=== PATIENT | female | born 1955 | race African-American/Black ===

== ENCOUNTER 2016-10-10 06:33 | Day surgery (SDC) | payer SELFPAY ==
[2016-10-08 13:34] VITALS: BMI 20.6
[2016-10-10] MEDS ORDERED: PROPOFOL 20 ML ONE ×2 (07:09)
[2016-10-10] MEDS ORDERED: MIDAZOLAM HCL 2 MG/2 ML SINGLE DOSE VIAL ONE (07:10)
[2016-10-10] MEDS ORDERED: SUCCINYLCHOLINE CHLORIDE 200 MG/10 ML VIAL ONE (07:10)
[2016-10-10] MEDS ORDERED: BUPIVACAINE HCL/PF 2.5 MG/ML - 30 ML VIAL IJ ONE (07:17)
[2016-10-10] MEDS ORDERED: EPINEPHrine/PF 1 MG/1 ML (1:1,000) AMPULE ONE (07:17)
[2016-10-10] MEDS ORDERED: LIDOCAINE HCL 1%, 10 MG/ML (20ML VIAL) ONE (07:17)
[2016-10-10] MEDS ORDERED: GUM MASTIC/STORAX/MSAL/ALCOHOL 1 DRP DROPSBTL MC ONE (07:17)
[2016-10-10] MEDS ORDERED: DEXAMETHASONE SOD PHOSPHATE 4 MG/1 ML VIAL ONE (08:41)
[2016-10-10] MEDS ORDERED: ONDANSETRON 4 MG/2 ML VIAL ONE ×2 (08:41→10:56)
[2016-10-10] MEDS ORDERED: ceFAZolin SODIUM 1 GM VIAL ONE (08:41)
[2016-10-10] MEDS ORDERED: BUPIVACAINE HCL/PF 0.25% (2.5MG/ML) 10 ML VIAL IJ ONE (10:08)
[2016-10-10] MEDS ORDERED: oxyCODONE HCL 5 MG TABLET PO PRN ×3 (10:33→10:59)
[2016-10-10] MEDS ORDERED: PROMETHAZINE HCL 25 MG/1 ML VIAL IVPUSH PRN (10:33)
[2016-10-10] MEDS ORDERED: ONDANSETRON 4 MG/2 ML VIAL IVPUSH PRN (10:33)
[2016-10-10] MEDS ORDERED: ONDANSETRON 4 MG/2 ML VIAL IVPB PRN (10:55)
[2016-10-10] MEDS ORDERED: ACETAMINOPHEN 325 MG TABLET (FP) PO PRN (10:55)
[2016-10-10] MEDS ORDERED: ZOLPIDEM TARTRATE 5 MG TABLET PO PRN (10:55)
[2016-10-10] MEDS ORDERED: DOCUSATE SODIUM 100 MG CAPSULE (FP) PO PRN (10:59)
[2016-10-10] MEDS ORDERED: LACTATED RINGERS SOLUTION 1,000 ML IV SCH (11:00)
[2016-10-10] MEDS ORDERED: PROCHLORPERAZINE MALEATE 5 MG TABLET PO PRN (11:09)
[2016-10-10] MEDS ORDERED: ACETAMINOPHEN 500 MG TABLET (FP) ONE (13:23)
[2016-10-10] MEDS ORDERED: ACETAMINOPHEN 500 MG TABLET (FP) PO ONE (13:31)
[2016-10-10] MEDS: CEFAZOLIN 1 GM/D5W 50 ML IVPB SCH ×2 (15:55→20:40)
[2016-10-10] MEDS ORDERED: SUMAtriptan SUCCINATE 50 MG TABLET PO PRN ×2 (17:57→18:00)
[2016-10-11] MEDS: CEFAZOLIN 1 GM/D5W 50 ML IVPB SCH ×2 (03:00→08:05)
[2016-10-11 06:28] VITALS: BP 129/69; PULSE 74; TEMP 98.5
[2016-10-11] MEDS ORDERED: TOPIRAMATE 100 MG TABLET PO SCH (10:00)
[2016-10-11] MEDS ORDERED: PANTOPRAZOLE 20 MG TABLET (FP) PO SCH (10:00)
== END 2016-10-11 09:34 | disposition home or self-care (01) ==
LOC: FASU 06:33 → FM/S 16:56 → FASU 10-11 09:34
PROVIDERS: ATTEND Surgery
PROC: 0J0L3ZZ Alteration of Right Upper Leg Subcutaneous Tissue and Fascia, Percutaneous Approach (ICD-10-PCS; 2016-10-10)
PROC: 0J0M3ZZ Alteration of Left Upper Leg Subcutaneous Tissue and Fascia, Percutaneous Approach (ICD-10-PCS; principal; 2016-10-10 08:41)
DX: Z41.1 Encounter for cosmetic surgery (principal)
CPT/HCPCS: 94010; 94760

== ENCOUNTER 2021-03-22 19:17 | Day surgery (SDC) | payer SELFPAY ==
[2021-03-21 09:52] VITALS: BMI 21.1
[2021-03-22] MEDS: METOCLOPRAMIDE HCL INJECTION 10 MG/2 ML VIAL IM ONE ×2 (14:34→19:51)
[2021-03-22] MEDS: ACETAMINOPHEN 1000 MG/100 ML VIAL IVPB ONE ×2 (14:36→19:50)
[~2021-03-22 19:17] MED LIST: BACITRACIN/POLYMYXIN OPH OINT 3.5 GM TUBE ONE; BUPIVACAINE HCL/PF 2.5 MG/ML - 30 ML VIAL IJ ONE; CEFAZOLIN 1 GM/D5W 1 GM/50 ML BAG ONE; DEXAMETHASONE SOD PHOSPHATE 4 MG/1 ML VIAL IVPUSH PRN; DEXAMETHASONE SOD PHOSPHATE 4 MG/1 ML VIAL ONE; EPINEPHrine/PF 1 MG/1 ML (1:1,000) AMPULE ONE; GENTAMICIN SO4 80 MG/2 ML VIAL ONE; GUM MASTIC/STORAX/MSAL/ALCOHOL 1 DRP DROPSBTL MC ONE; LACTATED RINGERS SOLUTION 1,000 ML IV SCH; LIDOCAINE 1%/EPI 1:100000 (20 ML MULTI DOSE VIAL) ONE; LIDOCAINE HCL 1%, 10 MG/ML (20ML VIAL) ONE; LIDOCAINE HCL/PF 2% SDV 5ML VIAL ONE; METOCLOPRAMIDE HCL INJECTION 10 MG/2 ML VIAL ONE; MIDAZOLAM HCL 2 MG/2 ML SINGLE DOSE VIAL ONE; ONDANSETRON 4 MG/2 ML VIAL IVPUSH PRN; ONDANSETRON 4 MG/2 ML VIAL ONE; PROMETHAZINE HCL 25 MG/1 ML VIAL IVPB PRN; PROPOFOL 20 ML ONE; ROCURONIUM BROMIDE 50 MG/5 ML SYRINGE ONE; VANCOMYCIN 1,000 MG VIAL (RESTRICTED TO ID ONLY) ONE; ceFAZolin SODIUM 1 GM VIAL IVPB ONE; ceFAZolin SODIUM 1 GM VIAL ONE; fentaNYL CITRATE 250 MCG/5 ML VIAL ONE; oxyCODONE HCL 5 MG TABLET PO PRN
[2021-03-22] MEDS ORDERED: ZOLPIDEM TARTRATE 5 MG TABLET PO PRN (19:26)
[2021-03-22] MEDS ORDERED: ONDANSETRON 4 MG/2 ML VIAL IVPUSH PRN (19:26)
[2021-03-22] MEDS ORDERED: ACETAMINOPHEN 325 MG TABLET (FP) PO PRN (19:26)
[2021-03-22] MEDS ORDERED: DOCUSATE SODIUM 100 MG CAPSULE (FP) PO PRN (19:33)
[2021-03-22] MEDS ORDERED: oxyCODONE HCL 5 MG TABLET PO PRN (19:33)
[2021-03-22] MEDS ORDERED: HYDROmorphone HCl 2 MG/ML VIAL IVPB PRN (19:35)
[2021-03-22] MEDS: CEFAZOLIN 1 GM/D5W 1 GM/50 ML BAG IVPB SCH (23:36)
[2021-03-23] MEDS: CEFAZOLIN 1 GM/D5W 1 GM/50 ML BAG IVPB SCH ×2 (06:10→10:06)
[2021-03-23 07:17] VITALS: BP 120/62; PULSE 80; TEMP 98.4
== END 2021-03-23 12:00 | disposition home or self-care (01) ==
LOC: FASUSAT 19:17 → FM/S 19:19 → FASUSAT 19:19 → FASU 19:26 → FM/S 19:26 → UNDOADMIN 19:27 → FM/S 19:27 → FASUSAT 03-23 12:00
PROVIDERS: ATTEND Surgery
CPT/HCPCS: 88300-TC; 88305-TC; 94760; J0131